=== PATIENT | male | born 1995 | race Caucasian/White ===

== ENCOUNTER 2021-04-13 10:54 | Emergency (ER) | payer OTHER ==
[~2021-04-13] VITALS: Ht 182.9 cm; Wt 98.0 kg
[~2021-04-13 10:54] MED LIST: AUGMENTIN 875875 MG PO; BENADRYL25 MG PO; DESYREL50 MG PO; IBUPROFEN 800800 MG PO; KAPVAY0.1 MG; NAPROSYN500 MG PO; NOHOMEMEDICATIONS; TRAMADOL 50 MG50 MG PO; TRIAMCINOLONE A80 G2 TOP; ULTRACET TABLE1 EACH PO; VYVANSE40 MG; ZANTAC 7575 MG PO
[2021-04-13 12:16] VITALS: BP 122/68
== END 2021-04-13 12:17 | disposition home or self-care (01) ==
LOC: M.ERS 10:54
DX: S70.12XA Contusion of left thigh, initial encounter (principal); F31.9 Bipolar disorder, unspecified; F90.9 Attention-deficit hyperactivity disorder, unspecified type; F20.9 Schizophrenia, unspecified; F17.210 Nicotine dependence, cigarettes, uncomplicated; X58.XXXA Exposure to other specified factors, initial encounter; Y93.89 Activity, other specified; Y92.89 Other specified places as the place of occurrence of the external cause; Y99.8 Other external cause status